=== PATIENT | female | born 1985 | race Caucasian/White ===

== ENCOUNTER 2025-09-09 19:51 | Emergency (ER) | payer MEDICAID ==
[2025-09-09] MEDS: Sodium Chloride 0.9% 10 ML Syringe FLUSH PRN (20:03)
[2025-09-09] MEDS: Albuterol 0.083% 2.5 MG/3 ML Neb Soln NEB ONE ×2 (20:52→22:40)
[2025-09-09] MEDS: methylPREDNISolone Sodium Succinate 125 MG/2 ML SDV IVPUSH ONE (20:53)
[2025-09-09 20:56] LABS: BASOPHILS ABSOLUTE AUTO 0.1 x10-3/uL (0.0-0.1); EOSINOPHILS ABSOLUTE AUTO 0.4 x10-3/uL (0.0-0.8); LYMPHOCYTES ABSOLUTE AUTO 3.3 x10-3/uL (1.0-4.4); LYMPHOCYTES PERCENT AUTO 26.7 % (18.4-52.1); MONOCYTES ABSOLUTE AUTO 0.8 x10-3/uL (0.3-1.0); MONOCYTES PERCENT AUTO 6.8 % (4.4-15.7); PLATELET COUNT,PLT 341 x10(3)uL (151-488); RED CELL DISTRIBUTION WIDTH 15.2 % (12.3-16.5); WHITE BLOOD CELL COUNT,WBC 12.3 x10-3/uL (3.0-10.3)
[2025-09-09 20:58] LABS: A/G RATIO 0.8; ALANINE AMINOTRANSFERASE,ALT 18 U/L (12-36); ASPARTATE AMNIOTRANSFERASE,AST 9 IU/L (5-25); BILIRUBIN TOTAL 0.3 mg/dL (0.1-1.3); BLOOD UREA NITROGEN,BUN 8 mg/dL (7-18); CARBON DIOXIDE,CO2 27 mmol/L (21-32); CHLORIDE,CL 107 mmol/L (100-110); CREATININE 0.8 mg/dL (0.55-1.02); EST CRCL DRUG DOSING (CG) 75.78 mL/min; ESTIMATED GFR 94 mL/min (>60); GLUCOSE RANDOM 119 mg/dL (80-116); PROTEIN TOTAL,TP 7.5 g/dL (6.0-8.0); SODIUM,NA 142 mmol/L (135-145)
[2025-09-09 21:02] LABS: POTASSIUM,K 2.8 mmol/L (3.5-5.3)
[2025-09-09 21:03] LABS: BASOPHILS PERCENT AUTO 0.6 % (0.2-1.5); EOSINOPHILS PERCENT AUTO 3.6 % (0.6-8.1); MEAN PLATELET VOLUME 8.9 fL (7.1-12.4); NEUTROPHILS ABSOLUTE AUTO 7.6 x10-3/uL (1.5-6.3); NEUTROPHILS PERCENT AUTO 62.3 % (30.8-76.2); RED BLOOD CELL COUNT 4.20 x10(6)uL (3.60-5.20)
[2025-09-09] MEDS: Potassium Chloride 20 MEQ Tab.ER PO ONE (21:49)
[2025-09-09] MEDS: Ketorolac 30 MG/ML SDV IVPUSH ONE (23:07)
== END 2025-09-09 23:48 | disposition home or self-care (01) ==
LOC: FB.ED 19:51
DX: J45.41 Moderate persistent asthma with (acute) exacerbation (principal); F41.9 Anxiety disorder, unspecified; R07.1 Chest pain on breathing; F17.200 Nicotine dependence, unspecified, uncomplicated; Z79.899 Other long term (current) drug therapy
CPT/HCPCS: 36415; 71046; 80053; 83735; 84484; 85025; 85379; 86140; 93005; 94640; 96374; 96375; 99285; A9270; J1885; J2919; J7613; J7620